=== PATIENT | male | born 1960 | race Two or more races ===

== ENCOUNTER 2022-06-17 08:35 | Outpatient (CLI) | payer OTHER | END 2022-06-17 09:28 | disposition home or self-care (01) | LOC: MRI 08:35 | PROVIDERS: ATTEND Internal Medicine | DX: M25.562 Pain in left knee (principal); M25.561 Pain in right knee | CPT/HCPCS: 73721 ==

== ENCOUNTER 2024-10-10 09:47 | Outpatient (CLI) | payer OTHER | END 2024-10-10 09:50 | disposition home or self-care (01) | LOC: MRI 09:47 | PROVIDERS: ATTEND Internal Medicine | DX: M25.561 Pain in right knee (principal) | CPT/HCPCS: 73721 ==